=== PATIENT | male | born 1945 | race Caucasian/White ===

== ENCOUNTER → 2017-12-09 | Outpatient (CLI) | payer MEDICARE, OTHER ==
[2017-12-09 10:24] LABS: HEMATOCRIT 41.5 % (42.0-52.0); HEMOGLOBIN 13.7 g/dl (13.5-17.5); MEAN CORPUSCULAR HEMOGLOBIN 30.5 pg (27.0-33.0); MEAN CORPUSCULAR VOLUME 92.4 fl (80.0-96.0); PLATELET COUNT, AUTOMATED 211 10^3/uL (150-450); RED BLOOD COUNT 4.49 10^6/uL (4.30-6.10); RED CELL DISTRIBUTION WIDTH 12.4 % (11.5-14.5); WHITE BLOOD COUNT 7.2 10^3/uL (4.0-10.0)
[2017-12-09 10:29] LABS: APPEARANCE, URINE CLEAR (CLEAR); BACTERIA, URINE AUTO NEGATIVE (NEGATIVE); BILIRUBIN, URINE AUTO NEGATIVE (NEGATIVE); BLOOD, URINE BLOOD NEGATIVE (NEGATIVE); COLOR, URINE YELLOW (YELLOW); GLUCOSE, URINE (UA) AUTO NEGATIVE (NEGATIVE); KETONE, URINE AUTO NEGATIVE (NEGATIVE); LEUKOCYTE ESTERASE, URINE AUTO 2+ (NEGATIVE); MUCUS, URINE SMALL (NEGATIVE); NITRITE, URINE AUTO NEGATIVE (NEGATIVE); PROTEIN, URINE AUTO NEGATIVE (NEGATIVE); RBC, URINE AUTO 1 /HPF (0-3); SPECIFIC GRAVITY URINE AUTO 1.011 (1.002-1.035); SQUAMOUS EPITHELIAL CELL UR AU 1 /HPF (0-6); UROBILINOGEN, URINE AUTO 0.2 mg/dL (0.0-2.0); WBC, URINE AUTO 5 /HPF (0-3)
[2017-12-09 10:51] LABS: ESTIMATED AVERAGE GLUCOSE 117 MG/DL (60-110); HEMOGLOBIN A1c 5.7 %
[2017-12-09 11:22] LABS: ALBUMIN 3.5 GM/DL (3.2-5.2); ALKALINE PHOSPHATASE 72 U/L (45-117); ALT/SGPT 25 U/L (12-78); ANION GAP 6 MEQ/L (8-16); AST/SGOT 15 U/L (7-37); BILIRUBIN,TOTAL 0.6 MG/DL (0.2-1.0); BLOOD UREA NITROGEN 17 MG/DL (7-18); CALCIUM LEVEL 8.3 MG/DL (8.8-10.2); CARBON DIOXIDE LEVEL 29 MEQ/L (21-32); CHLORIDE LEVEL 107 MEQ/L (98-107); CHOLESTEROL LEVEL 161 MG/DL (<200); GLOMERULAR FILTRATION RATE > 60.0 (>42); GLUCOSE, FASTING 100 MG/DL (70-100); HDL CHOLESTEROL 46 MG/DL (>40); LDL CHOLESTEROL 95.2 MG/DL (<100); NON-HDL-C 115 MG/DL; POTASSIUM SERUM 4.3 MEQ/L (3.5-5.1); PROSTATIC SPECIFIC AG MONITOR 0.94 NG/ML (< 4.0); SODIUM LEVEL 142 MEQ/L (136-145); THYROID STIMULATING HORMONE 0.935 uIU/ML (0.358-3.740); TRIGLYCERIDES LEVEL 99 MG/DL (<150)
[2017-12-11 10:07] LABS: TOTAL 25(OH) VITAMIN D 74.6 NG/ML (30.0-100.0)
== END ==
LOC: M LAB 09:43
DX: R53.83 Other fatigue (principal); I10 Essential (primary) hypertension; Z79.899 Other long term (current) drug therapy
CPT/HCPCS: 84443

== ENCOUNTER → 2017-12-12 | Outpatient (CLI) | payer MEDICARE, OTHER ==
[~2017-12-12] MED LIST: GASTROGRAFIN SOLUTION 30ML (Q9963) As Ordered; ISOVUE-370 76% 100ML VIAL (Q9967) As Ordered
== END ==
LOC: M RAD 12:38
DX: R19.02 Left upper quadrant abdominal swelling, mass and lump (principal); N28.1 Cyst of kidney, acquired; K57.30 Diverticulosis of large intestine without perforation or abscess without bleeding; K40.20 Bilateral inguinal hernia, without obstruction or gangrene, not specified as recurrent
CPT/HCPCS: Q9963

== ENCOUNTER → 2018-09-07 | Outpatient (CLI) | payer MEDICARE, OTHER ==
[~2018-09-07] MED LIST changes: +ASPI81TA85 PO; +DOXA1TAB40 PO; -GASTROGRAFIN SOLUTION 30ML (Q9963) As Ordered; +IBUP80TA PO; -ISOVUE-370 76% 100ML VIAL (Q9967) As Ordered; +METO50TA7 PO; +MULTCAP11 PO; +TRIA37.53 PO; +norco PO
--- NOTE | 2018-09-07 09:56 | REP ---
MAXILLOFACIAL CT WITHOUT CONTRAST: HISTORY: Nasal polyps. COMPARISON: 11/06/2015. Mild mucosal thickening is present in the ethmoid sinuses. Minimal mucosal thickening is present in the maxillary and right sphenoid sinuses. The remaining sinuses are clear. Mucosal thickening involves the ostiomeatal units. The middle and inferior nasal turbinates are partially paradoxical. There is arsen bullosa of the middle nasal turbinates. There is minimal deviation of the nasal septum to the left. The cribriform plate, medial willard of the orbits, and optic canals are intact. The carotid canals form a segment of the posterolateral willard of the sphenoid sinus. Soft tissue densities are present in the nasal passage consistent with polyps. IMPRESSION: 1. Sinus mucosal thickening as described above. 2. There are soft tissue densities in the nasal passage consistent with polyps. Electronically Signed by Zuhair Montoya MD 09/07/2018 09:59 A
== END ==
LOC: M RAD 08:58
PROVIDERS: ATTEND Otolaryngology
DX: J33.0 Polyp of nasal cavity (principal)

== ENCOUNTER 2019-12-07 00:49 | Emergency (ER) | payer MEDICARE, OTHER ==
[~2019-12-07] VITALS: Ht 175.3 cm; Wt 92.2 kg
[~2019-12-07 00:49] MED LIST changes: -ASPI81TA85 PO; +ASPI81TA86 PO
[2019-12-07] MEDS ORDERED: FINA5TAB2 PO (00:56)
[2019-12-07] MEDS ORDERED: CETI10CH PO (01:03)
[2019-12-07] MEDS ORDERED: TETANUS/DIPHTHERIA TOX ADSORB ADULT 0.5ML SYR/VIAL (90714) IM ONE (02:00)
--- NOTE | 2019-12-07 03:29 | REPVR ---
PROCEDURE INFORMATION: Exam: XR Pelvis Exam date and time: 12/07/2019 2:47 AM Age: 74 years old Clinical indication: Injury or trauma; Fall; Initial encounter; Sprain or strain; Does not apply; Pelvic region; Additional info: Traum TECHNIQUE: Imaging protocol: XR pelvis. Views: 1 or 2 view. COMPARISON: CA CT ABD PELVIS W/O FOL BY MANOJ 2017-12-12 14:22 FINDINGS: Bones/joints: Moderate severe degenerative joint disease. Soft tissues: Unremarkable. Vasculature: Question left sacral alar insufficiency fracture versus overlying vascular calcifications and structures. IMPRESSION: Question left sacral alar insufficiency fracture versus overlying vascular calcifications and structures. Electronically signed by: Rangel Barrett On 12/07/2019 03:29:31 AM
--- NOTE | 2019-12-07 03:29 | REPVR ---
PROCEDURE INFORMATION: Exam: XR Left Shoulder Exam date and time: 12/07/2019 2:47 AM Age: 74 years old Clinical indication: Injury or trauma; Injury history: Fall; Initial encounter; Sprain or strain; Shoulder; Left; Additional info: Traum TECHNIQUE: Imaging protocol: XR Left shoulder. Views: 2 or more views. COMPARISON: No relevant prior studies available. 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 Soft tissues: Normal. IMPRESSION: No acute findings. Electronically signed by: Rangel Barrett On 12/07/2019 03:29:47 AM
[2019-12-07 03:33] VITALS: BP 158/75
== END 2019-12-07 03:34 | disposition home or self-care (01) ==
LOC: M ED 00:49
DX: T14.8XXA Other injury of unspecified body region, initial encounter (principal); W01.0XXA Fall on same level from slipping, tripping and stumbling without subsequent striking against object, initial encounter; Y92.099 Unspecified place in other non-institutional residence as the place of occurrence of the external cause; Y93.9 Activity, unspecified; Y99.9 Unspecified external cause status; I10 Essential (primary) hypertension; Z79.82 Long term (current) use of aspirin; Z79.899 Other long term (current) drug therapy

== ENCOUNTER → 2020-03-05 | Outpatient (CLI) | payer MEDICARE, OTHER ==
[~2020-03-05] MED LIST changes: +CETI10CH PO; +FINA5TAB2 PO
[2020-03-05 10:31] LABS: HEMATOCRIT 38.6 % (42.0-52.0); HEMOGLOBIN 12.6 g/dl (13.5-17.5); MEAN CORPUSCULAR HEMOGLOBIN 29.5 pg (27.0-33.0); MEAN CORPUSCULAR HGB CONC 32.6 g/dl (32.0-36.5); MEAN CORPUSCULAR VOLUME 90.4 fl (80.0-96.0); PLATELET COUNT, AUTOMATED 194 10^3/uL (150-450); RED BLOOD COUNT 4.27 10^6/uL (4.30-6.10); WHITE BLOOD COUNT 6.5 10^3/uL (4.0-10.0)
[2020-03-05 10:40] LABS: INR 1.05; PROTHROMBIN TIME 13.9 SECONDS (12.5-14.3)
[2020-03-05 11:15] LABS: ALBUMIN 3.7 GM/DL (3.2-5.2); ALT/SGPT 19 U/L (12-78); BILIRUBIN,TOTAL 0.5 MG/DL (0.2-1.0); BLOOD UREA NITROGEN 17 MG/DL (7-18); CALCIUM LEVEL 8.8 MG/DL (8.8-10.2); CARBON DIOXIDE LEVEL 29 MEQ/L (21-32); CHLORIDE LEVEL 100 MEQ/L (98-107); CHOLESTEROL LEVEL 156 MG/DL (<200); CHOLESTEROL RISK RATIO 2.689 (<5); GLOMERULAR FILTRATION RATE > 60.0 (>42); GLUCOSE, FASTING 95 MG/DL (70-100); HDL CHOLESTEROL 58 MG/DL (>40); LDL CHOLESTEROL 91 MG/DL (<100); NON-HDL-C 98 MG/DL; POTASSIUM SERUM 3.9 MEQ/L (3.5-5.1); PROSTATIC SPECIFIC AG MONITOR 0.21 NG/ML (< 4.00); SODIUM LEVEL 133 MEQ/L (136-145); TOTAL PROTEIN 6.7 GM/DL (6.4-8.2); TRIGLYCERIDES LEVEL 35 MG/DL (<150)
[2020-03-05 12:25] LABS: HEMOGLOBIN A1c 5.6 %
--- NOTE | 2020-03-05 14:14 | REP ---
INDICATION: HTN,FATIGUE/PREOP COMPARISON: 12/12/2017. TECHNIQUE: PA/Lateral FINDINGS: Lungs: Clear, no infiltrate. Heart: Normal in size. Mediastinum: There is calcification of the thoracic aorta. The mediastinal silhouette is unchanged. Pleural angles: Unremarkable.. Bones and soft tissues: There are degenerative changes of the spine without compression deformity. IMPRESSION: No acute pulmonary disease. <Electronically signed by David Pugh > 03/05/20 [id number]
--- NOTE | 2020-03-07 14:12 | ECGEPIP ---
[facility] Test Date: 2020-03-05 Pat Name: GERMAN VAUGHN Department: Room: - Gender: Male Indirect Sales Representative: PRAKASH : 1945 Requested By: Jorge Adkins Order Number: [id number] Reading MD: Reji Quintanilla Measurements Intervals [place] Rate: 53 P: 71 [place]: 214 QRS: -28 QRSD: 109 T: 29 QT: 438 QTc: 413 Interpretive Statements SINUS BRADYCARDIA WITH FIRST DEGREE AV BLOCK MARKED LEFT AXIS DEVIATION Compared to prior tracings in the system, no remarkable changes Electronically Signed on 03-07-2020 14:11:28 EST by Reji Quintanilla
== END ==
LOC: M LAB 09:31
PROVIDERS: ATTEND Family Medicine
DX: Z01.818 Encounter for other preprocedural examination (principal); I10 Essential (primary) hypertension; R53.83 Other fatigue; Z79.899 Other long term (current) drug therapy; R97.20 Elevated prostate specific antigen [PSA]

== ENCOUNTER → 2020-03-21 | Outpatient (CLI) | payer MEDICARE, OTHER | LOC: M LABSMTC 09:54 | PROVIDERS: ATTEND Orthopaedic Surgery | DX: Z01.812 Encounter for preprocedural laboratory examination (principal); Z20.828 Contact with and (suspected) exposure to other viral communicable diseases ==

== ENCOUNTER → 2020-07-08 | Outpatient (CLI) | payer MEDICARE, OTHER ==
--- NOTE | 2020-07-08 12:23 | REPVR ---
PROCEDURE INFORMATION: Exam: MR Lumbar Spine Without Contrast. Exam date and time: 07/08/2020 10:56 AM Age: 74 years old Clinical indication: Low back pain; Additional info: Ddd lumbar hnp vs stenosis TECHNIQUE: Imaging protocol: Multiplanar magnetic resonance images of the lumbar spine without contrast. COMPARISON: CR Spine. Lumbosacral, complete 08/14/2015 9:59 AM FINDINGS: Spinal cord: Normal signal. No cord compression. L1-L2: There is mild retrolisthesis at this level. There is degenerative disc disease including disc space narrowing and dessication. There is a moderate disc bulge with a superimposed broad-based central disc herniation. Disc bulging extends into both neural foramen causing severe bilateral neural foraminal narrowing. There is facet arthropathy and ligamentum flavum hypertrophy. There is moderate spinal canal stenosis. L2-L3: There is disc desiccation. There is mild disc bulging. Disc bulging extends into both neural foramen causing mild bilateral neural foraminal narrowing. There is facet arthropathy and ligamentum flavum hypertrophy. There is mild spinal canal stenosis. L3-L4: There is disc desiccation. There is moderate disc bulging. Disc bulging extends into both neural foramen causing moderate/severe bilateral neural foraminal narrowing. There is facet arthropathy and ligamentum flavum hypertrophy. There is mild/moderate spinal canal stenosis. L4-L5: There is grade 1 anterior spondylolisthesis at this level. There is disc desiccation. There is a moderate disc bulge with a small superimposed central disc herniation. Disc bulging extends into both neural foramen causing moderate/severe bilateral neural foraminal narrowing. There is facet arthropathy and ligamentum flavum hypertrophy. There is moderate/severe spinal canal stenosis. L5-S1: There is grade 1 anterior spondylolisthesis at this level. Bilateral spondylolysis is suspected but difficult to confirm. There is disc space narrowing and desiccation. There are moderate degenerative end plate changes at this level. There is moderate disc bulging. There are anterior and posterior disc herniations.There is a superimposed left foraminal disc herniation. There is severe left-sided neuroforaminal narrowing. There is moderate right-sided neuroforaminal narrowing. There is facet arthropathy and ligamentum flavum hypertrophy. There is mild spinal canal stenosis. Soft tissues: Unremarkable. IMPRESSION: Advanced multilevel degenerative changes causing variable degrees of spinal canal and neuroforaminal narrowing as described above. Moderate/severe spinal canal stenosis at L4/5. Severe left-sided neural foraminal narrowing at L5/S1. Multilevel disc herniations. Please see details above. Electronically signed by: Sergio Rollins On 07/08/2020 12:23:50 PM
== END ==
LOC: M PLARAD 09:52
PROVIDERS: ATTEND Orthopaedic Surgery
DX: M51.36 Other intervertebral disc degeneration, lumbar region (principal); M51.26 Other intervertebral disc displacement, lumbar region; M51.37 Other intervertebral disc degeneration, lumbosacral region; M51.27 Other intervertebral disc displacement, lumbosacral region

== ENCOUNTER → 2020-07-28 | Outpatient (CLI) | payer MEDICARE, OTHER ==
[2020-07-28 10:13] LABS: INR 1.09; PROTHROMBIN TIME 14.4 SECONDS (12.5-14.3)
[2020-07-28 10:14] LABS: PARTIAL THROMBOPLASTIN TIME 27.2 SECONDS (24.2-38.5)
[2020-07-28 10:20] LABS: COLLAGEN EPINEPHRINE 122 SECONDS (74-162)
== END ==
LOC: M LAB 09:37
PROVIDERS: ATTEND Physician Assistant
DX: M51.37 Other intervertebral disc degeneration, lumbosacral region (principal)

== ENCOUNTER → 2020-08-04 | Outpatient (CLI) | payer MEDICARE, OTHER ==
--- NOTE | 2020-08-04 15:50 | REP ---
INDICATION: SPINAL STENOSIS. COMPARISON: MR cervical spine 01/23/2019 TECHNIQUE: Sagittal T1, T2, STIR, axial T1 and T2 weighted MR images of the cervical spine obtained. FINDINGS: On the sagittal T2 weighted images, there is severe multilevel degenerative disc disease. There is slight anterolisthesis of C3 over C4 and C4 over C5. There is anterior osteophytic spurring. On the sagittal T2 weighted images, disc-osteophyte complex and/or thickening of the posterior longitudinal ligament results in canal stenosis at multiple cervical levels. At the craniovertebral junction there is a hypointense pannus formation posterior to C2 that narrows the foramen magnum but without evidence of cord impingement. Craniocervical junction is otherwise unremarkable. On the review of axial images, At C2-3 disc-osteophyte complex with moderate canal stenosis and [id number]-ji-[id number] bilateral foraminal narrowing. At C3-4 disc-osteophyte complex with at least moderate canal stenosis, and moderate bilateral foraminal narrowing. At C4-5 disc-osteophyte complex with qgovhhup-[id number] canal stenosis and afat-hb-[id number] bilateral foraminal narrowing. At C5-6 disc-osteophyte complex with severe canal stenosis with cord impingement and cord compression. There is severe bilateral foraminal narrowing. At C6-7 disc-osteophyte complex with moderate canal narrowing and eizt-ro-koviedit bilateral foraminal narrowing At C7-T1 no significant canal or foraminal narrowing. When compared to the prior study of 01/23/2019, no gross changes. IMPRESSION: 1. Severe multilevel degenerative disc disease with slight anterolisthesis of C3 over C4 and C4 over C5. 2. Multilevel canal stenosis, is most notable at C5-6 level with severe canal stenosis with cord impingement and cord compression but no definite abnormal cord signal. 3. Multilevel foraminal narrowing, appears most significant at C5-6 with severe bilateral foraminal narrowing. 4. When compared to the prior study of 01/23/2019, no gross changes. <Electronically signed by Jabier Talamantes > 08/04/20 [id number]
== END ==
LOC: M PLARAD 14:07
PROVIDERS: ATTEND Physician Assistant
DX: M48.02 Spinal stenosis, cervical region (principal); M50.31 Other cervical disc degeneration, high cervical region; M50.321 Other cervical disc degeneration at C4-C5 level; M50.322 Other cervical disc degeneration at C5-C6 level

== ENCOUNTER → 2020-08-25 | Outpatient (REF) | payer MEDICARE, OTHER | LOC: M LAB REF 16:13 | PROVIDERS: ATTEND Physician Assistant | DX: D23.39 Other benign neoplasm of skin of other parts of face (principal) | CPT/HCPCS: 11102; 88305; G0463 ==

== ENCOUNTER → 2020-09-23 | Outpatient (CLI) | payer MEDICARE, OTHER ==
[2020-09-23 14:17] LABS: PLATELET COUNT, AUTOMATED 192 10^3/uL (150-450)
== END ==
LOC: M LAB 13:40 → M RAD 13:40
PROVIDERS: ATTEND Physician Assistant
DX: Z01.818 Encounter for other preprocedural examination (principal)

== ENCOUNTER → 2020-10-29 | Outpatient (CLI) | payer MEDICARE, OTHER ==
[2020-10-29 14:06] LABS: HEMATOCRIT 38.3 % (42.0-52.0); HEMOGLOBIN 13.1 g/dl (13.5-17.5); MEAN CORPUSCULAR HEMOGLOBIN 31.3 pg (27.0-33.0); MEAN CORPUSCULAR HGB CONC 34.2 g/dl (32.0-36.5); MEAN CORPUSCULAR VOLUME 91.6 fl (80.0-96.0); PLATELET COUNT, AUTOMATED 201 10^3/uL (150-450); RED BLOOD COUNT 4.18 10^6/uL (4.30-6.10); WHITE BLOOD COUNT 6.1 10^3/uL (4.0-10.0)
[2020-10-29 14:17] LABS: INR 1.06
[2020-10-29 14:21] LABS: HEMOGLOBIN A1c 5.7 %
[2020-10-29 14:37] LABS: ALBUMIN 3.7 GM/DL (3.2-5.2); ALT/SGPT 21 U/L (12-78); BILIRUBIN,TOTAL 0.6 MG/DL (0.2-1.0); BLOOD UREA NITROGEN 15 MG/DL (7-18); CALCIUM LEVEL 8.6 MG/DL (8.8-10.2); CARBON DIOXIDE LEVEL 29 MEQ/L (21-32); CHLORIDE LEVEL 104 MEQ/L (98-107); CHOLESTEROL LEVEL 152 MG/DL (<200); CHOLESTEROL RISK RATIO 2.235 (<5); CREATININE FOR GFR 0.94 MG/DL (0.70-1.30); GLOMERULAR FILTRATION RATE > 60.0 (>42); GLUCOSE, FASTING 107 MG/DL (70-100); HDL CHOLESTEROL 68 MG/DL (>40); LDL CHOLESTEROL 76 MG/DL (<100); NON-HDL-C 84 MG/DL; POTASSIUM SERUM 4.4 MEQ/L (3.5-5.1); PROSTATIC SPECIFIC AG MONITOR 0.22 NG/ML (< 4.00); SODIUM LEVEL 137 MEQ/L (136-145); THYROID STIMULATING HORMONE 0.763 uIU/ML (0.358-3.740); TOTAL PROTEIN 6.9 GM/DL (6.4-8.2); TRIGLYCERIDES LEVEL 42 MG/DL (<150)
--- NOTE | 2020-10-29 15:13 | REP ---
INDICATION: HTN- LABS AND EKG FIRST. COMPARISON: Comparison study chest x-ray March 05, 2020. TECHNIQUE: Two views.. FINDINGS: The lungs are well inflated and free of infiltrate. The pleural angles are sharp. The heart size is normal. Pulmonary vasculature is not increased. No significant bony abnormality is seen. The lungs are somewhat hyperinflated unchanged. There are degenerative changes in the thoracic spine and aorta as well as in the shoulders. IMPRESSION: No active disease.. <Electronically signed by Sushil Alejandro > 10/29/20 [id number]
--- NOTE | 2020-10-30 22:36 | ECGEPIP ---
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
== END ==
LOC: M LAB 13:18
PROVIDERS: ATTEND Family Medicine
DX: Z01.818 Encounter for other preprocedural examination (principal); R00.1 Bradycardia, unspecified; I10 Essential (primary) hypertension; Z79.899 Other long term (current) drug therapy

== ENCOUNTER → 2021-09-01 | Outpatient (CLI) | payer MEDICARE, OTHER ==
[2021-09-01 13:17] LABS: PLATELET COUNT, AUTOMATED 181 10^3/uL (150-450)
[2021-09-01 13:38] LABS: INR 1.1; PROTHROMBIN TIME 14.6 SECONDS (12.7-14.5)
[2021-09-01 13:39] LABS: PARTIAL THROMBOPLASTIN TIME 29.2 SECONDS (25.9-37.0)
== END ==
LOC: M LAB 12:40
PROVIDERS: ATTEND Physical Medicine & Rehabilitation
DX: M48.07 Spinal stenosis, lumbosacral region (principal)

== ENCOUNTER → 2021-09-20 | Outpatient (CLI) | payer MEDICARE, OTHER ==
[~2021-09-20] MED LIST changes: -TRIA37.53 PO; +TRIA37.577 PO
[2021-09-20 14:12] LABS: HEMATOCRIT 33.5 % (42.0-52.0); MEAN CORPUSCULAR HEMOGLOBIN 29.8 pg (27.0-33.0); MEAN CORPUSCULAR HGB CONC 32.8 g/dl (32.0-36.5); MEAN CORPUSCULAR VOLUME 90.8 fl (80.0-96.0); PLATELET COUNT, AUTOMATED 172 10^3/uL (150-450); RED BLOOD COUNT 3.69 10^6/uL (4.30-6.10); WHITE BLOOD COUNT 9.4 10^3/uL (4.0-10.0)
[2021-09-20 14:39] LABS: HEMOGLOBIN A1c 5.7 %
[2021-09-20 15:05] LABS: ALBUMIN 3.7 GM/DL (3.2-5.2); ALT/SGPT 17 U/L (12-78); BILIRUBIN,TOTAL 0.5 MG/DL (0.2-1.0); BLOOD UREA NITROGEN 23 MG/DL (7-18); CARBON DIOXIDE LEVEL 29 MEQ/L (21-32); CHLORIDE LEVEL 102 MEQ/L (98-107); CREATININE FOR GFR 0.93 MG/DL (0.70-1.30); GLOMERULAR FILTRATION RATE > 60.0 (>42); GLUCOSE, FASTING 109 MG/DL (70-100); POTASSIUM SERUM 4.5 MEQ/L (3.5-5.1); SODIUM LEVEL 136 MEQ/L (136-145); THYROID STIMULATING HORMONE 0.632 uIU/ML (0.358-3.740); TOTAL 25(OH) VITAMIN D 94.9 NG/ML (30.0-100.0); TOTAL PROTEIN 6.9 GM/DL (6.4-8.2)
== END ==
LOC: M RAD 12:57
PROVIDERS: ATTEND Family Medicine
DX: D64.9 Anemia, unspecified (principal); R53.83 Other fatigue; E03.9 Hypothyroidism, unspecified; I44.0 Atrioventricular block, first degree
CPT/HCPCS: 36415; 71046; 80053; 82306; 83036; 84443; 85027; 93005; G0103

== ENCOUNTER 2022-01-21 13:42 | Inpatient (IN) | payer MEDICARE, OTHER ==
[~2022-01-21] VITALS: Ht 172.7 cm; Wt 86.3 kg
[2022-01-21] MEDS ORDERED: DOXA1TAB42 PO (13:52)
[2022-01-21] MEDS ORDERED: METO1TAB32 PO (13:52)
[2022-01-21] MEDS ORDERED: MYCO15CR (13:52)
[2022-01-21] MEDS ORDERED: HYDR2.5C (13:52)
[2022-01-21 15:12] LABS: BASO % 0.2 % (0.0-1.0); HEMATOCRIT 23.2 % (42.0-52.0); HEMOGLOBIN 7.4 g/dl (13.5-17.5); LYMPH # 0.7 10^3/uL (1.5-5.0); LYMPH % 8.2 % (24.0-44.0); MEAN CORPUSCULAR HEMOGLOBIN 25.4 pg (27.0-33.0); MEAN CORPUSCULAR HGB CONC 31.9 g/dl (32.0-36.5); MEAN CORPUSCULAR VOLUME 79.7 fl (80.0-96.0); MONO # 0.5 10^3/uL (0.0-0.8); NEUTROPHILS # 7.1 10^3/uL (1.5-8.5); NEUTROPHILS % 85.2 % (36.0-66.0); PLATELET COUNT, AUTOMATED 213 10^3/uL (150-450); RED BLOOD COUNT 2.91 10^6/uL (4.30-6.10); WHITE BLOOD COUNT 8.3 10^3/uL (4.0-10.0)
[2022-01-21 15:41] LABS: RSV AMPLIFICATION NEGATIVE (NEGATIVE)
[2022-01-21 15:54] LABS: ALBUMIN 3.4 GM/DL (3.2-5.2); ALT/SGPT 18 U/L (12-78); BILIRUBIN,DIRECT 0.2 MG/DL (0.0-0.2); BILIRUBIN,TOTAL 0.6 MG/DL (0.2-1.0); BLOOD UREA NITROGEN 27 MG/DL (7-18); CALCIUM LEVEL 8.4 MG/DL (8.8-10.2); CARBON DIOXIDE LEVEL 26 MEQ/L (21-32); CHLORIDE LEVEL 106 MEQ/L (98-107); CREATININE FOR GFR 0.99 MG/DL (0.70-1.30); FERRITIN 6 NG/ML (26-388); GLOMERULAR FILTRATION RATE > 60.0 (>42); GLUCOSE, FASTING 129 MG/DL (70-100); IRON (FE) 37 UG/DL (65-175); PERCENT SATURATION 9.9 % (19.7-50.0); SODIUM LEVEL 137 MEQ/L (136-145); TOTAL IRON BINDING CAPACITY 372 UG/DL (250-450); TOTAL PROTEIN 6.4 GM/DL (6.4-8.2)
[2022-01-21 16:24] LABS: VITAMIN B12 LEVEL > 2000 PG/ML (247-911)
[2022-01-21] MEDS ORDERED: NS 1,000 ML IV SCH (17:00)
[2022-01-21] MEDS: GASTROGRAFIN SOLUTION 30ML PO SCH ×2 (17:03→17:30)
[2022-01-21 17:13] LABS: INR 1.12; PROTHROMBIN TIME 14.8 SECONDS (12.7-14.5)
[2022-01-21 17:14] LABS: PARTIAL THROMBOPLASTIN TIME 28.2 SECONDS (25.9-37.0)
[2022-01-21] MEDS ORDERED: ISOVUE-370 76% 100ML VIAL As Ordered ONE (18:09)
[2022-01-21] MEDS ORDERED: cbd (20:45)
[2022-01-21] MEDS ORDERED: BIO-FREEZE TOP (20:48)
[2022-01-21] MEDS ORDERED: CBD CREAM TOP (20:48)
[2022-01-21] MEDS ORDERED: HOME MED LIST COMPLETE! XX SCH (20:50)
[2022-01-21] MEDS: DOXAZOSIN MESYLATE 1 MG TAB PO SCH (21:00)
[2022-01-21 23:50] VITALS: BP 146/65
[2022-01-22] VITALS (15 sets, daily range): BP systolic 103–158; BP diastolic 52–70
[2022-01-22] MEDS ORDERED: ACETAMINOPHEN TAB 650MG DOSE (2X325MG) PO ONE (01:00)
[2022-01-22] MEDS: DOXAZOSIN MESYLATE 1 MG TAB PO SCH ×2 (02:10→20:01)
[2022-01-22 08:02] LABS: BASO % 0.1 % (0.0-1.0); EOS % 0.1 % (0.0-3.0); HEMATOCRIT 23.7 % (42.0-52.0); HEMOGLOBIN 7.5 g/dl (13.5-17.5); LYMPH # 0.7 10^3/uL (1.5-5.0); MEAN CORPUSCULAR HEMOGLOBIN 25.7 pg (27.0-33.0); MEAN CORPUSCULAR HGB CONC 31.6 g/dl (32.0-36.5); MEAN CORPUSCULAR VOLUME 81.2 fl (80.0-96.0); MONO % 6.2 % (2.0-8.0); NEUTROPHILS # 14.5 10^3/uL (1.5-8.5); NEUTROPHILS % 88.9 % (36.0-66.0); PLATELET COUNT, AUTOMATED 206 10^3/uL (150-450); RED BLOOD COUNT 2.92 10^6/uL (4.30-6.10); WHITE BLOOD COUNT 16.3 10^3/uL (4.0-10.0)
[2022-01-22] MEDS: FINASTERIDE 5MG TAB PO SCH (08:36)
[2022-01-22] MEDS: METOPROLOL SUCC *XL* 25MG TAB (TopROL *XL*) PO SCH (08:38)
[2022-01-22 08:48] LABS: ALBUMIN 3.1 GM/DL (3.2-5.2); ALT/SGPT 15 U/L (12-78); BILIRUBIN,TOTAL 1.7 MG/DL (0.2-1.0); BLOOD UREA NITROGEN 25 MG/DL (7-18); CARBON DIOXIDE LEVEL 22 MEQ/L (21-32); CHLORIDE LEVEL 106 MEQ/L (98-107); CREATININE FOR GFR 0.84 MG/DL (0.70-1.30); GLOMERULAR FILTRATION RATE > 60.0 (>42); GLUCOSE, FASTING 120 MG/DL (70-100); POTASSIUM SERUM 3.7 MEQ/L (3.5-5.1); SODIUM LEVEL 137 MEQ/L (136-145); TOTAL PROTEIN 5.9 GM/DL (6.4-8.2)
[2022-01-22] MEDS ORDERED: LIDOCAINE 5% (LIDODERM) PATCH TD SCH ×2 (09:00→21:00)
[2022-01-22] MEDS ORDERED: POLYVINYL ALCOHOL OPHTH SOLN 15 ML(LIQUITEARS) OU PRN (09:20)
[2022-01-22] MEDS ORDERED: MIRALAX *UNIT DOSE* 17GM PACKET PO PRN (14:00)
[2022-01-22] MEDS: FERROUS SULFATE 325MG TAB PO SCH ×2 (15:00→20:01)
[2022-01-22] MEDS: DOCUSATE SODIUM 100MG CAPSULE PO SCH ×2 (15:28→20:14)
[2022-01-22 15:38] LABS: HEMATOCRIT 25.9 % (42.0-52.0); HEMOGLOBIN 8.5 g/dl (13.5-17.5)
[2022-01-22] MEDS ORDERED: **NOTE PATIENT COMMENT** MISC XX SCH (21:00)
[2022-01-22] MEDS ORDERED: SENNA 8.6 MG TAB (SENOKOT) PO SCH (21:00)
[2022-01-22 22:20] LABS: BASO # 0.1 10^3/uL (0.0-0.2); BASO % 0.4 % (0.0-1.0); EOS # 0.1 10^3/uL (0.0-0.5); EOS % 0.4 % (0.0-3.0); HEMATOCRIT 25.6 % (42.0-52.0); HEMOGLOBIN 8.7 g/dl (13.5-17.5); LYMPH % 6.2 % (24.0-44.0); MEAN CORPUSCULAR HEMOGLOBIN 27.5 pg (27.0-33.0); MONO # 1.2 10^3/uL (0.0-0.8); MONO % 7.5 % (2.0-8.0); NEUTROPHILS % 84.8 % (36.0-66.0); PLATELET COUNT, AUTOMATED 182 10^3/uL (150-450); RED BLOOD COUNT 3.16 10^6/uL (4.30-6.10); WHITE BLOOD COUNT 15.3 10^3/uL (4.0-10.0)
[2022-01-23] VITALS: BP 126/59
[2022-01-23 04:00] VITALS: BP 124/64
[2022-01-23 04:40] LABS: BASO % 0.3 % (0.0-1.0); EOS # 0.1 10^3/uL (0.0-0.5); EOS % 0.9 % (0.0-3.0); HEMATOCRIT 25.7 % (42.0-52.0); HEMOGLOBIN 8.5 g/dl (13.5-17.5); LYMPH # 1.1 10^3/uL (1.5-5.0); LYMPH % 9.2 % (24.0-44.0); MEAN CORPUSCULAR HEMOGLOBIN 27.2 pg (27.0-33.0); MEAN CORPUSCULAR HGB CONC 33.1 g/dl (32.0-36.5); MEAN CORPUSCULAR VOLUME 82.4 fl (80.0-96.0); MONO # 1.1 10^3/uL (0.0-0.8); MONO % 8.7 % (2.0-8.0); NEUTROPHILS # 9.8 10^3/uL (1.5-8.5); NEUTROPHILS % 80.4 % (36.0-66.0); PLATELET COUNT, AUTOMATED 169 10^3/uL (150-450); RED BLOOD COUNT 3.12 10^6/uL (4.30-6.10); WHITE BLOOD COUNT 12.2 10^3/uL (4.0-10.0)
[2022-01-23 05:25] LABS: ALBUMIN 2.8 GM/DL (3.2-5.2); ALT/SGPT 16 U/L (12-78); BLOOD UREA NITROGEN 18 MG/DL (7-18); CALCIUM LEVEL 7.6 MG/DL (8.8-10.2); CARBON DIOXIDE LEVEL 24 MEQ/L (21-32); CHLORIDE LEVEL 108 MEQ/L (98-107); CREATININE FOR GFR 0.85 MG/DL (0.70-1.30); GLOMERULAR FILTRATION RATE > 60.0 (>42); GLUCOSE, FASTING 119 MG/DL (70-100); POTASSIUM SERUM 3.3 MEQ/L (3.5-5.1); SODIUM LEVEL 137 MEQ/L (136-145)
[2022-01-23] MEDS ORDERED: POTASSIUM CHLORIDE 10MEQ SR TABLET PO ONE (06:00)
[2022-01-23 08:00] VITALS: BP 135/66
[2022-01-23] MEDS ORDERED: SENN18TA PO (08:39)
[2022-01-23] MEDS ORDERED: MIRA1POW3 PO (08:39)
[2022-01-23] MEDS ORDERED: FERR1TAB8 PO (08:39)
[2022-01-23] MEDS ORDERED: COLA100C5 PO (08:39)
[2022-01-23] MEDS: FINASTERIDE 5MG TAB PO SCH (08:54)
[2022-01-23 08:55] VITALS: BP 135/66
[2022-01-23] MEDS: METOPROLOL SUCC *XL* 25MG TAB (TopROL *XL*) PO SCH (08:55)
[2022-01-23] MEDS: DOCUSATE SODIUM 100MG CAPSULE PO SCH (08:55)
[2022-01-23] MEDS: FERROUS SULFATE 325MG TAB PO SCH (08:56)
[2022-01-23] MEDS ORDERED: **NOTE PATIENT COMMENT** MISC XX SCH (09:00)
[2022-01-23 12:00] VITALS: BP 166/58
[2022-01-23] MEDS ORDERED: IRON SUCROSE 200 MG in NS 100 ML IV ONE (12:00)
== END 2022-01-23 13:25 | disposition home or self-care (01) | DRG 378 ==
LOC: M ED 13:42 → M ED INP 22:01 → ENRESERV 22:35 → M PCU 01-22 00:27
PROVIDERS: ADMIT Family Medicine; ATTEND Internal Medicine
PROC: 30233N1 Transfusion of Nonautologous Red Blood Cells into Peripheral Vein, Percutaneous Approach (ICD-10-PCS; principal; 2022-01-22)
DX: K62.5 Hemorrhage of anus and rectum (principal); D62 Acute posthemorrhagic anemia; I10 Essential (primary) hypertension; N40.0 Benign prostatic hyperplasia without lower urinary tract symptoms; K57.30 Diverticulosis of large intestine without perforation or abscess without bleeding; M19.90 Unspecified osteoarthritis, unspecified site; Z79.899 Other long term (current) drug therapy

== ENCOUNTER → 2022-01-28 | Outpatient (CLI) | payer MEDICARE, OTHER ==
[~2022-01-28] MED LIST changes: +BIO-FREEZE TOP; +CBD CREAM TOP; +COLA100C5 PO; +DOXA1TAB42 PO; +FERR1TAB8 PO; +HYDR2.5C; +METO1TAB32 PO; +MIRA1POW3 PO; +MYCO15CR; +SENN18TA PO; +cbd
[2022-01-28 13:38] LABS: HEMATOCRIT 30.2 % (42.0-52.0); HEMOGLOBIN 9.5 g/dl (13.5-17.5); MEAN CORPUSCULAR HEMOGLOBIN 27.1 pg (27.0-33.0); MEAN CORPUSCULAR HGB CONC 31.5 g/dl (32.0-36.5); PLATELET COUNT, AUTOMATED 287 10^3/uL (150-450); RED BLOOD COUNT 3.51 10^6/uL (4.30-6.10); WHITE BLOOD COUNT 7.1 10^3/uL (4.0-10.0)
[2022-01-28 14:57] LABS: ALBUMIN 3.3 GM/DL (3.2-5.2); ALT/SGPT 19 U/L (12-78); BILIRUBIN,TOTAL 0.5 MG/DL (0.2-1.0); BLOOD UREA NITROGEN 13 MG/DL (7-18); CALCIUM LEVEL 8.7 MG/DL (8.8-10.2); CARBON DIOXIDE LEVEL 29 MEQ/L (21-32); CHLORIDE LEVEL 105 MEQ/L (98-107); CREATININE FOR GFR 0.98 MG/DL (0.70-1.30); GLOMERULAR FILTRATION RATE > 60.0 (>42); GLUCOSE, FASTING 108 MG/DL (70-100); POTASSIUM SERUM 4.3 MEQ/L (3.5-5.1); PROSTATIC SPECIFIC AG MONITOR 0.82 NG/ML (< 4.00); SODIUM LEVEL 138 MEQ/L (136-145); THYROID STIMULATING HORMONE 0.746 uIU/ML (0.358-3.740); TOTAL PROTEIN 6.3 GM/DL (6.4-8.2)
[2022-01-28 15:22] LABS: TOTAL 25(OH) VITAMIN D 99.2 NG/ML (30.0-100.0)
[2022-01-28 15:23] LABS: TESTOSTERONE 414 NG/DL (241-827)
[2022-01-28 16:08] LABS: HEMOGLOBIN A1c 5.8 %
== END ==
LOC: M LAB 12:44
PROVIDERS: ATTEND Family Medicine
DX: D64.9 Anemia, unspecified (principal); R53.83 Other fatigue

== ENCOUNTER → 2022-02-16 | Outpatient (CLI) | payer MEDICARE, OTHER ==
[2022-02-16 13:07] LABS: HEMATOCRIT 32.3 % (42.0-52.0); HEMOGLOBIN 10.1 g/dl (13.5-17.5); MEAN CORPUSCULAR HEMOGLOBIN 27.4 pg (27.0-33.0); MEAN CORPUSCULAR HGB CONC 31.3 g/dl (32.0-36.5); MEAN CORPUSCULAR VOLUME 87.8 fl (80.0-96.0); PLATELET COUNT, AUTOMATED 257 10^3/uL (150-450); RED BLOOD COUNT 3.68 10^6/uL (4.30-6.10); WHITE BLOOD COUNT 7.8 10^3/uL (4.0-10.0)
[2022-02-16 14:06] LABS: ALBUMIN 3.2 GM/DL (3.2-5.2); ALT/SGPT 19 U/L (12-78); BILIRUBIN,TOTAL 0.3 MG/DL (0.2-1.0); BLOOD UREA NITROGEN 18 MG/DL (7-18); CALCIUM LEVEL 8.3 MG/DL (8.8-10.2); CARBON DIOXIDE LEVEL 27 MEQ/L (21-32); CHLORIDE LEVEL 105 MEQ/L (98-107); CREATININE FOR GFR 0.91 MG/DL (0.70-1.30); GLOMERULAR FILTRATION RATE > 60.0 (>42); GLUCOSE, FASTING 106 MG/DL (70-100); POTASSIUM SERUM 3.9 MEQ/L (3.5-5.1); PROSTATIC SPECIFIC AG MONITOR 0.68 NG/ML (< 4.00); SODIUM LEVEL 138 MEQ/L (136-145); TOTAL PROTEIN 6.5 GM/DL (6.4-8.2)
[2022-02-16 15:09] LABS: TESTOSTERONE 309 NG/DL (241-827)
[2022-02-16 15:25] LABS: HEMOGLOBIN A1c 5.6 %
== END ==
LOC: M LAB 12:02
PROVIDERS: ATTEND Family Medicine
DX: D64.9 Anemia, unspecified (principal); R53.83 Other fatigue; N40.0 Benign prostatic hyperplasia without lower urinary tract symptoms

== ENCOUNTER → 2022-03-29 | Outpatient (CLI) | payer MEDICARE, OTHER ==
[2022-03-29 12:45] LABS: HEMATOCRIT 38.5 % (42.0-52.0); HEMOGLOBIN 12.2 g/dl (13.5-17.5); MEAN CORPUSCULAR HEMOGLOBIN 28.1 pg (27.0-33.0); MEAN CORPUSCULAR HGB CONC 31.7 g/dl (32.0-36.5); MEAN CORPUSCULAR VOLUME 88.7 fl (80.0-96.0); PLATELET COUNT, AUTOMATED 235 10^3/uL (150-450); RED BLOOD COUNT 4.34 10^6/uL (4.30-6.10); WHITE BLOOD COUNT 6.6 10^3/uL (4.0-10.0)
[2022-03-29 13:16] LABS: THYROID STIMULATING HORMONE 0.762 uIU/ML (0.55-4.78)
[2022-03-29 13:35] LABS: ALBUMIN 3.7 G/DL (3.2-5.2); ALKALINE PHOSPHATASE 72 U/L (46-116); ALT/SGPT 17 U/L (7.0-40); AST/SGOT 20 U/L (<34); BILIRUBIN,TOTAL 0.7 MG/DL (0.3-1.2); BLOOD UREA NITROGEN 13 MG/DL (9-23); CALCIUM LEVEL 8.7 MG/DL (8.3-10.6); CARBON DIOXIDE LEVEL 29 MMOL/L (20-31); CHLORIDE LEVEL 103 MMOL/L (98-107); CREATININE FOR GFR 0.84 MG/DL (0.70-1.30); GLOMERULAR FILTRATION RATE > 60.0 (>42); GLUCOSE, FASTING 99 MG/DL (74-106); POTASSIUM SERUM 4.3 MMOL/L (3.5-5.1); SODIUM LEVEL 138 MMOL/L (136-145)
[2022-03-29 17:34] LABS: HEMOGLOBIN A1c 5.2 % (4.0-6.0)
== END ==
LOC: M LAB 11:43
PROVIDERS: ATTEND Family Medicine
DX: D64.9 Anemia, unspecified (principal); R53.83 Other fatigue; E03.9 Hypothyroidism, unspecified

== ENCOUNTER → 2022-04-04 | Outpatient (CLI) | payer MEDICARE, OTHER ==
[~2022-04-04] MED LIST changes: +ASTA4CAP PO; +CURAMED; +GALZ25CA PO; +LUTE15CA PO; +MAG100TA PO; +N-ACCAP PO; +OMEGCAP4 PO; +POTA99CA2 PO; +VITA100093 PO; +VITA500C24 PO; +VITMTA PO; +[UNRECOGNIZED DRUG - CODE] PO; +[UNRECOGNIZED DRUG - OTHER]; +[UNRECOGNIZED DRUG - OTHER] PO
== END ==
LOC: M LABSMTC 10:34
PROVIDERS: ATTEND Anesthesiology
DX: Z01.812 Encounter for preprocedural laboratory examination (principal); Z11.52 Encounter for screening for COVID-19

== ENCOUNTER → 2022-08-18 | Outpatient (CLI) | payer MEDICARE, OTHER ==
[2022-08-18 13:24] LABS: HEMATOCRIT 37.5 % (42.0-52.0); HEMOGLOBIN 12.1 g/dl (13.5-17.5); MEAN CORPUSCULAR HEMOGLOBIN 28.3 pg (27.0-33.0); MEAN CORPUSCULAR HGB CONC 32.3 g/dl (32.0-36.5); MEAN CORPUSCULAR VOLUME 87.8 fl (80.0-96.0); PLATELET COUNT, AUTOMATED 255 10^3/uL (150-450); RED BLOOD COUNT 4.27 10^6/uL (4.30-6.10); WHITE BLOOD COUNT 9.5 10^3/uL (4.0-10.0)
[2022-08-18 13:49] LABS: ALBUMIN 3.5 G/DL (3.2-5.2); ALKALINE PHOSPHATASE 106 U/L (46-116); ALT/SGPT 9 U/L (7.0-40); AST/SGOT 25 U/L (<34); BILIRUBIN,TOTAL 0.7 MG/DL (0.3-1.2); BLOOD UREA NITROGEN 14 MG/DL (9-23); CALCIUM LEVEL 8.8 MG/DL (8.3-10.6); CARBON DIOXIDE LEVEL 29 MMOL/L (20-31); CHLORIDE LEVEL 104 MMOL/L (98-107); CHOLESTEROL LEVEL 140 MG/DL (<200); CHOLESTEROL RISK RATIO 2.69 (<5); CREATININE FOR GFR 0.86 MG/DL (0.70-1.30); GLOMERULAR FILTRATION RATE > 60.0 (>42); GLUCOSE, FASTING 100 MG/DL (74-106); LDL CHOLESTEROL 77.4 MG/DL (<100); POTASSIUM SERUM 4.3 MMOL/L (3.5-5.1); SODIUM LEVEL 137 MMOL/L (136-145); TOTAL PROTEIN 6.8 G/DL (5.7-8.2); TRIGLYCERIDES LEVEL 53 MG/DL (<150)
[2022-08-18 13:50] LABS: THYROID STIMULATING HORMONE 0.938 uIU/ML (0.55-4.78)
[2022-08-18 13:51] LABS: TESTOSTERONE 407 NG/DL (241-827)
[2022-08-18 16:39] LABS: HEMOGLOBIN A1c 5.6 % (4.0-6.0)
== END ==
LOC: M LAB 12:24
PROVIDERS: ATTEND Family Medicine
DX: D64.9 Anemia, unspecified (principal); R53.83 Other fatigue; E03.9 Hypothyroidism, unspecified

== ENCOUNTER → 2022-09-21 | Outpatient (CLI) | payer MEDICARE, OTHER ==
[~2022-09-21] MED LIST changes: +ACET32TAB PO; +AZIT-12 PO; +BIOCOMPLETE PO; +CYAN500T14 PO; +DOCU100C16 PO; +IRON65TA2 PO; +MELA10CA6 PO; +NERVE PO; +OCUV1CAP4 PO; +OMEG10002 PO; +VITA-243 PO; +ZINC50TA17 PO; +[UNRECOGNIZED DRUG - OTHER] PO; +[UNRECOGNIZED DRUG - REMARK] PO; +boswellia PO; +curamed PO; +curcumin PO; +essential enzymes PO
[2022-09-21 14:24] LABS: HEMATOCRIT 36.6 % (42.0-52.0); HEMOGLOBIN 11.6 g/dl (13.5-17.5); MEAN CORPUSCULAR HGB CONC 31.7 g/dl (32.0-36.5); MEAN CORPUSCULAR VOLUME 88.4 fl (80.0-96.0); PLATELET COUNT, AUTOMATED 261 10^3/uL (150-450); RED BLOOD COUNT 4.14 10^6/uL (4.30-6.10); WHITE BLOOD COUNT 9.2 10^3/uL (4.0-10.0)
[2022-09-21 14:32] LABS: INR 1.04; PROTHROMBIN TIME 13.8 SECONDS (12.5-14.5)
[2022-09-21 14:34] LABS: HEMOGLOBIN A1c 5.6 % (4.0-6.0)
[2022-09-21 14:46] LABS: ALBUMIN 3.4 G/DL (3.2-5.2); ALKALINE PHOSPHATASE 105 U/L (46-116); ALT/SGPT 18 U/L (7.0-40); AST/SGOT 25 U/L (<34); BILIRUBIN,TOTAL 0.8 MG/DL (0.3-1.2); BLOOD UREA NITROGEN 14 MG/DL (9-23); CALCIUM LEVEL 8.7 MG/DL (8.3-10.6); CARBON DIOXIDE LEVEL 29 MMOL/L (20-31); CHLORIDE LEVEL 102 MMOL/L (98-107); CHOLESTEROL LEVEL 133 MG/DL (<200); CHOLESTEROL RISK RATIO 2.49 (<5); CREATININE FOR GFR 0.76 MG/DL (0.70-1.30); GLOMERULAR FILTRATION RATE > 60.0 (>42); GLUCOSE, FASTING 102 MG/DL (74-106); HDL CHOLESTEROL 53.4 MG/DL (>40); LDL CHOLESTEROL 67.6 MG/DL (<100); NON-HDL-C 79.6 MG/DL; POTASSIUM SERUM 4.6 MMOL/L (3.5-5.1); PROSTATIC SPECIFIC AG MONITOR 0.11 NG/ML (< 4.00); SODIUM LEVEL 135 MMOL/L (136-145); TOTAL PROTEIN 7.2 G/DL (5.7-8.2); TRIGLYCERIDES LEVEL 60 MG/DL (<150)
[2022-09-21 14:50] LABS: THYROID STIMULATING HORMONE 0.823 uIU/ML (0.55-4.78)
[2022-09-21 14:52] LABS: TOTAL 25(OH) VITAMIN D 108.6 NG/ML (20.0-100.0)
== END ==
LOC: M RAD 12:58
PROVIDERS: ATTEND Family Medicine
DX: Z01.818 Encounter for other preprocedural examination (principal); I10 Essential (primary) hypertension; J44.9 Chronic obstructive pulmonary disease, unspecified

== ENCOUNTER → 2022-11-15 | Day surgery (SDC) | payer MEDICARE, OTHER ==
[~2022-11-15] VITALS: Ht 175.3 cm; Wt 80.3 kg
[~2022-11-15] MED LIST changes: +ACET-839 PO; +CEPH500C PO; +CYCL-707 PO; +GLYCOPYRROLATE INJ 0.2 MG/ML 2 ML VIAL As Ordered ONE; +NS 1,000 ML IV ONE; +SENN-111 PO; -SENN18TA PO; +TRAM50TA2 PO; +propofoL 200 MG/20 ML VIAL As Ordered ONE
[2022-11-15 08:53] VITALS: BP 127/66; O2SAT 97
== END | disposition home or self-care (01) ==
LOC: M OPP 06:42
PROVIDERS: ATTEND Internal Medicine Gastroenterology
DX: C18.0 Malignant neoplasm of cecum (principal); K56.690 Other partial intestinal obstruction; K57.30 Diverticulosis of large intestine without perforation or abscess without bleeding; K64.8 Other hemorrhoids; K62.5 Hemorrhage of anus and rectum; Z79.899 Other long term (current) drug therapy

== ENCOUNTER → 2022-11-25 | Outpatient (CLI) | payer MEDICARE, OTHER ==
[~2022-11-25] MED LIST changes: -GLYCOPYRROLATE INJ 0.2 MG/ML 2 ML VIAL As Ordered ONE; -NS 1,000 ML IV ONE; -propofoL 200 MG/20 ML VIAL As Ordered ONE
[2022-11-25 11:23] LABS: HEMATOCRIT 31.7 % (42.0-52.0); MEAN CORPUSCULAR HEMOGLOBIN 26.7 pg (27.0-33.0); MEAN CORPUSCULAR HGB CONC 31.5 g/dl (32.0-36.5); MEAN CORPUSCULAR VOLUME 84.8 fl (80.0-96.0); PLATELET COUNT, AUTOMATED 320 10^3/uL (150-450); RED BLOOD COUNT 3.74 10^6/uL (4.30-6.10); WHITE BLOOD COUNT 10.5 10^3/uL (4.0-10.0)
[2022-11-25 11:35] LABS: HEMOGLOBIN A1c 6.3 % (4.0-6.0)
[2022-11-25 11:44] LABS: ALBUMIN 3.1 G/DL (3.2-5.2); ALKALINE PHOSPHATASE 131 U/L (46-116); ALT/SGPT 26 U/L (7.0-40); AST/SGOT 39 U/L (<34); BILIRUBIN,TOTAL 0.8 MG/DL (0.3-1.2); BLOOD UREA NITROGEN 12 MG/DL (9-23); CALCIUM LEVEL 8.5 MG/DL (8.3-10.6); CARBON DIOXIDE LEVEL 28 MMOL/L (20-31); CHLORIDE LEVEL 103 MMOL/L (98-107); CHOLESTEROL LEVEL 132 MG/DL (<200); CHOLESTEROL RISK RATIO 2.77 (<5); CREATININE FOR GFR 0.79 MG/DL (0.70-1.30); GLOMERULAR FILTRATION RATE > 60.0 (>42); GLUCOSE, FASTING 100 MG/DL (74-106); HDL CHOLESTEROL 47.6 MG/DL (>40); LDL CHOLESTEROL 73.4 MG/DL (<100); NON-HDL-C 84.4 MG/DL; POTASSIUM SERUM 4.4 MMOL/L (3.5-5.1); PROSTATIC SPECIFIC AG MONITOR 0.11 NG/ML (< 4.00); SODIUM LEVEL 137 MMOL/L (136-145); TOTAL PROTEIN 6.7 G/DL (5.7-8.2); TRIGLYCERIDES LEVEL 55 MG/DL (<150)
[2022-11-25 11:48] LABS: THYROID STIMULATING HORMONE 0.726 uIU/ML (0.55-4.78)
[2022-11-25 11:50] LABS: TOTAL 25(OH) VITAMIN D 93.1 NG/ML (20.0-100.0)
== END ==
LOC: M LAB 10:11
PROVIDERS: ATTEND Family Medicine
DX: I10 Essential (primary) hypertension (principal); D64.9 Anemia, unspecified; R53.83 Other fatigue; Z79.899 Other long term (current) drug therapy; C18.0 Malignant neoplasm of cecum; E03.9 Hypothyroidism, unspecified; R97.20 Elevated prostate specific antigen [PSA]

== ENCOUNTER → 2022-12-12 | Outpatient (CLI) | payer MEDICARE, OTHER ==
[2022-12-12 12:46] LABS: HEMATOCRIT 34.7 % (42.0-52.0); MEAN CORPUSCULAR HEMOGLOBIN 26.6 pg (27.0-33.0); MEAN CORPUSCULAR HGB CONC 31.7 g/dl (32.0-36.5); PLATELET COUNT, AUTOMATED 382 10^3/uL (150-450); RED BLOOD COUNT 4.13 10^6/uL (4.30-6.10); WHITE BLOOD COUNT 11.5 10^3/uL (4.0-10.0)
[2022-12-12 12:59] LABS: INR 1.17; PROTHROMBIN TIME 14.6 SECONDS (12.5-14.5)
[2022-12-12 13:07] LABS: HEMOGLOBIN A1c 5.5 % (4.0-6.0)
[2022-12-12 13:18] LABS: ALBUMIN 3.2 G/DL (3.2-5.2); ALKALINE PHOSPHATASE 145 U/L (46-116); ALT/SGPT 21 U/L (7.0-40); AST/SGOT 38 U/L (<34); BILIRUBIN,TOTAL 0.8 MG/DL (0.3-1.2); BLOOD UREA NITROGEN 14 MG/DL (9-23); CARBON DIOXIDE LEVEL 26 MMOL/L (20-31); CHLORIDE LEVEL 100 MMOL/L (98-107); CREATININE FOR GFR 0.79 MG/DL (0.70-1.30); GLOMERULAR FILTRATION RATE > 60.0 (>42); GLUCOSE, FASTING 120 MG/DL (74-106); POTASSIUM SERUM 4.8 MMOL/L (3.5-5.1); SODIUM LEVEL 134 MMOL/L (136-145); TOTAL PROTEIN 7.3 G/DL (5.7-8.2)
[2022-12-12 13:20] LABS: THYROID STIMULATING HORMONE 1.022 uIU/ML (0.55-4.78)
== END ==
LOC: M RAD 11:57
PROVIDERS: ATTEND Family Medicine
DX: I10 Essential (primary) hypertension (principal); Z86.73 Personal history of transient ischemic attack (TIA), and cerebral infarction without residual deficits; Z79.899 Other long term (current) drug therapy; R91.8 Other nonspecific abnormal finding of lung field

== ENCOUNTER 2022-12-14 11:07 | Emergency (ER) | payer MEDICARE, OTHER ==
[~2022-12-14] VITALS: Ht 180.3 cm; Wt 81.8 kg
[2022-12-14 11:40] LABS: VENOUS BASE EXCESS -0.1 (-2.0-2.0); VENOUS HCO3 25.4 MMOL/L (23.0-27.0); VENOUS O2 SATURATION 75.2 % (60.0-80.0); VENOUS PARTIAL PRESSURE CO2 44.8 mmHg (38.0-50.0); VENOUS PARTIAL PRESSURE O2 42.2 mmHg (30.0-50.0); VENOUS PH 7.372 UNITS (7.330-7.430); VENOUS TOTAL CO2 26.8 MMOL/L (24.0-28.0)
[2022-12-14 11:45] LABS: BASO # 0.1 10^3/uL (0.0-0.2); BASO % 0.7 % (0.0-1.0); EOS # 0.4 10^3/uL (0.0-0.5); EOS % 2.6 % (0.0-3.0); HEMATOCRIT 34.4 % (42.0-52.0); HEMOGLOBIN 10.9 g/dl (13.5-17.5); LYMPH # 1.3 10^3/uL (1.5-5.0); LYMPH % 9.6 % (24.0-44.0); MEAN CORPUSCULAR HEMOGLOBIN 26.8 pg (27.0-33.0); MEAN CORPUSCULAR HGB CONC 31.7 g/dl (32.0-36.5); MEAN CORPUSCULAR VOLUME 84.7 fl (80.0-96.0); MONO % 12.1 % (2.0-8.0); NEUTROPHILS # 9.8 10^3/uL (1.5-8.5); NEUTROPHILS % 74.2 % (36.0-66.0); PLATELET COUNT, AUTOMATED 372 10^3/uL (150-450); RED BLOOD COUNT 4.06 10^6/uL (4.30-6.10); WHITE BLOOD COUNT 13.3 10^3/uL (4.0-10.0)
[2022-12-14] MEDS ORDERED: dexAMETHasone 20MG/5ML VIAL IV ONE (12:00)
[2022-12-14 12:08] LABS: MONO # 1.6 10^3/uL (0.0-0.8)
[2022-12-14 12:11] LABS: OSMOLALITY SERUM 278 MOSM/KG (280-301)
[2022-12-14 12:17] LABS: THYROID STIMULATING HORMONE 0.799 uIU/ML (0.55-4.78)
[2022-12-14 12:21] LABS: ALBUMIN 2.6 G/DL (3.2-5.2); ALKALINE PHOSPHATASE 132 U/L (46-116); ALT/SGPT 17 U/L (7.0-40); AST/SGOT 31 U/L (<34); BILIRUBIN,DIRECT 0.3 MG/DL (<0.4); BILIRUBIN,TOTAL 0.8 MG/DL (0.3-1.2); BLOOD UREA NITROGEN 13 MG/DL (9-23); CALCIUM LEVEL 7.7 MG/DL (8.3-10.6); CARBON DIOXIDE LEVEL 25 MMOL/L (20-31); CHLORIDE LEVEL 104 MMOL/L (98-107); CREATININE FOR GFR 0.68 MG/DL (0.70-1.30); GLOMERULAR FILTRATION RATE > 60.0 (>42); GLUCOSE, FASTING 95 MG/DL (74-106); SODIUM LEVEL 137 MMOL/L (136-145)
[2022-12-14 15:07] VITALS: BP 148/71; TEMP 99.4; O2SAT 95
== END 2022-12-14 17:28 | disposition left against medical advice (07) ==
LOC: M ED 11:07 → EDBD 11:07 → M ED 15:48
DX: R90.0 Intracranial space-occupying lesion found on diagnostic imaging of central nervous system (principal); Z91.81 History of falling; I10 Essential (primary) hypertension; Z86.73 Personal history of transient ischemic attack (TIA), and cerebral infarction without residual deficits; N40.0 Benign prostatic hyperplasia without lower urinary tract symptoms; J30.89 Other allergic rhinitis; Z87.891 Personal history of nicotine dependence; Z79.899 Other long term (current) drug therapy
CPT/HCPCS: 70450; 71045; 80048; 80076; 81001; 82140; 82803; 83605; 83930; 84443; 85025; 87040; 87077; 87086; 87186; 87635; 93005; 93041; 94760; 96374; 99285; J1100

== ENCOUNTER → 2023-02-10 | Outpatient (CLI) | payer MEDICARE, OTHER ==
[~2023-02-10] MED LIST changes: +COMPTAB7 PO; +DEXA4TA; +FLUT50SP17; +MECL-136; +ONDA4TAB6; +PANT40TA29; +POLY17PO18 PO; +QUER500C PO; +ROPI1TAB73; +SENN-186 PO; +TRIA1CR80; +TUME1CAP PO
[2023-02-10 14:38] LABS: HEMATOCRIT 29.1 % (42.0-52.0); HEMOGLOBIN 9.5 g/dl (13.5-17.5); MEAN CORPUSCULAR HEMOGLOBIN 27.4 pg (27.0-33.0); MEAN CORPUSCULAR HGB CONC 32.6 g/dl (32.0-36.5); MEAN CORPUSCULAR VOLUME 83.9 fl (80.0-96.0); PLATELET COUNT, AUTOMATED 280 10^3/uL (150-450); RED BLOOD COUNT 3.47 10^6/uL (4.30-6.10); WHITE BLOOD COUNT 19.3 10^3/uL (4.0-10.0)
[2023-02-10 14:52] LABS: ALBUMIN 2.4 G/DL (3.2-5.2); ALKALINE PHOSPHATASE 157 U/L (46-116); ALT/SGPT 45 U/L (7.0-40); AST/SGOT 49 U/L (<34); BILIRUBIN,TOTAL 0.7 MG/DL (0.3-1.2); BLOOD UREA NITROGEN 29 MG/DL (9-23); CALCIUM LEVEL 8.2 MG/DL (8.3-10.6); CARBON DIOXIDE LEVEL 27 MMOL/L (20-31); CHLORIDE LEVEL 96 MMOL/L (98-107); CREATININE FOR GFR 0.74 MG/DL (0.70-1.30); GLOMERULAR FILTRATION RATE > 60.0 (>42); GLUCOSE, FASTING 107 MG/DL (74-106); POTASSIUM SERUM 4.1 MMOL/L (3.5-5.1); SODIUM LEVEL 132 MMOL/L (136-145); TOTAL PROTEIN 5.7 G/DL (5.7-8.2)
[2023-02-10 14:54] LABS: THYROID STIMULATING HORMONE 0.389 uIU/ML (0.55-4.78)
== END ==
LOC: M LAB 13:55
PROVIDERS: ATTEND Family Medicine
DX: D64.9 Anemia, unspecified (principal); R53.83 Other fatigue; E03.9 Hypothyroidism, unspecified

== ENCOUNTER 2023-02-22 04:29 | Inpatient (IN) | payer MEDICARE, OTHER ==
[2023-02-22] VITALS (13 sets, daily range): BP systolic 100–126; BP diastolic 40–68; TEMP 97.1–98.9; O2SAT 94–100
[~2023-02-22] VITALS: Ht 175.3 cm; Wt 78.7 kg
[~2023-02-22 04:29] MED LIST changes: -DEXA4TA; +DEXA4TA PO; -MECL-136; +MECL-136 PO
[2023-02-22] MEDS ORDERED: DIPH2.5T15 PO (05:22)
[2023-02-22] MEDS ORDERED: TIZA1TAB12 PO (05:27)
[2023-02-22] MEDS ORDERED: SODI1TAB12 PO (05:27)
[2023-02-22] MEDS ORDERED: GERI8.6T PO (05:27)
[2023-02-22] MEDS ORDERED: ROPI1TAB73 PO (05:27)
[2023-02-22] MEDS ORDERED: TRAZ-257 PO (05:27)
[2023-02-22] MEDS ORDERED: ONDANSETRON 4MG 2ML VIAL IV ONE (05:45)
[2023-02-22 05:49] LABS: BASO % 0.1 % (0.0-1.0); EOS % 0.1 % (0.0-3.0); HEMATOCRIT 23.1 % (42.0-52.0); HEMOGLOBIN 7.7 g/dl (13.5-17.5); LYMPH # 0.3 10^3/uL (1.5-5.0); LYMPH % 3.3 % (24.0-44.0); MEAN CORPUSCULAR HEMOGLOBIN 27.6 pg (27.0-33.0); MEAN CORPUSCULAR HGB CONC 33.3 g/dl (32.0-36.5); MEAN CORPUSCULAR VOLUME 82.8 fl (80.0-96.0); MONO # 0.5 10^3/uL (0.0-0.8); MONO % 4.8 % (2.0-8.0); NEUTROPHILS # 9.1 10^3/uL (1.5-8.5); NEUTROPHILS % 88.6 % (36.0-66.0); PLATELET COUNT, AUTOMATED 221 10^3/uL (150-450); RED BLOOD COUNT 2.79 10^6/uL (4.30-6.10); WHITE BLOOD COUNT 10.3 10^3/uL (4.0-10.0)
[2023-02-22] MEDS: MORPHINE 2 MG/ML 1ML VIAL IV PRN ×2 (06:04→12:08)
[2023-02-22 06:10] LABS: INR 1.31; PROTHROMBIN TIME 15.9 SECONDS (12.5-14.5)
[2023-02-22 06:11] LABS: PARTIAL THROMBOPLASTIN TIME 25.5 SECONDS (24.8-34.2)
[2023-02-22 06:14] LABS: CK-MB VALUE MASS 1.4 NG/ML (<3.6)
[2023-02-22 06:16] LABS: BLOOD UREA NITROGEN 22 MG/DL (9-23); CALCIUM LEVEL 6.7 MG/DL (8.3-10.6); CARBON DIOXIDE LEVEL 22 MMOL/L (20-31); CHLORIDE LEVEL 101 MMOL/L (98-107); GLOMERULAR FILTRATION RATE > 60.0 (>42); GLUCOSE, FASTING 99 MG/DL (74-106); POTASSIUM SERUM 4.7 MMOL/L (3.5-5.1); SODIUM LEVEL 131 MMOL/L (136-145)
[2023-02-22 06:19] LABS: CPK CREATINE PHOSPHOKINASE 63 U/L (46-171); MB/CK RELATIVE INDEX 2.22 (< OR =4)
[2023-02-22] MEDS ORDERED: ISOVUE-370 76% 100ML VIAL As Ordered ONE (06:42)
[2023-02-22 07:17] LABS: CK-MB VALUE MASS 1.4 NG/ML (<3.6)
[2023-02-22 07:18] LABS: MB/CK RELATIVE INDEX 2.37 (< OR =4)
[2023-02-22] MEDS ORDERED: PANTOPRAZOLE 40MG VIAL IV ONE (08:15)
[2023-02-22] MEDS ORDERED: MED REC IN PROGRESS XX SCH (08:40)
[2023-02-22] MEDS ORDERED: METOPROLOL TART 12.5 MG PER 1/2 TAB PO SCH (09:00)
[2023-02-22] MEDS: METOPROLOL TART 12.5 MG PER 1/2 TAB PO SCH ×2 (09:00→20:58)
[2023-02-22] MEDS ORDERED: ROPI2TAB46 PO (10:23)
[2023-02-22] MEDS ORDERED: PANT20TA6 PO (10:23)
[2023-02-22] MEDS ORDERED: HOME MED LIST COMPLETE! XX SCH (10:40)
[2023-02-22 11:19] LABS: ALBUMIN 1.8 G/DL (3.2-5.2); TOTAL PROTEIN 4.4 G/DL (5.7-8.2)
[2023-02-22 11:22] LABS: FREE T4 0.69 NG/DL (0.89-1.76); THYROID STIMULATING HORMONE 0.238 uIU/ML (0.55-4.78)
[2023-02-22] MEDS: dexAMETHasone 4 MG TAB PO SCH ×2 (11:42→20:54)
[2023-02-22] MEDS: FINASTERIDE 5MG TAB PO SCH (11:42)
[2023-02-22] MEDS ORDERED: FUROSEMIDE 20MG/2ML VIAL IV ONE (12:00)
[2023-02-22] MEDS: FERROUS SULFATE 325MG TAB PO SCH (12:26)
[2023-02-22] MEDS: ACETAMINOPHEN TAB 650MG DOSE (2X325MG) PO PRN (14:01)
[2023-02-22] MEDS: MECLIZINE 12.5 MG TAB PO SCH ×2 (17:12→20:57)
[2023-02-22 18:14] LABS: HEMATOCRIT 33.3 % (42.0-52.0)
[2023-02-22] MEDS: traZODone 100 MG TAB PO SCH (20:54)
[2023-02-22] MEDS: SENNA 8.6 MG TAB (SENOKOT) PO SCH (20:55)
[2023-02-22] MEDS: DOXAZOSIN MESYLATE 1 MG TAB PO SCH (20:56)
[2023-02-22] MEDS: rOPINIRole 1MG TAB PO SCH (20:58)
[2023-02-22] MEDS ORDERED: LOMOTIL 2.5MG/0.025MG TABLET PO SCH (21:00)
[2023-02-23 01:20] VITALS: BP 120/60
[2023-02-23 04:50] VITALS: BP 100/56; TEMP 98.6; O2SAT 97
[2023-02-23] MEDS: ACETAMINOPHEN TAB 650MG DOSE (2X325MG) PO PRN (05:05)
[2023-02-23 05:14] LABS: BASO % 0.1 % (0.0-1.0); HEMATOCRIT 28.7 % (42.0-52.0); HEMOGLOBIN 9.6 g/dl (13.5-17.5); LYMPH # 0.4 10^3/uL (1.5-5.0); LYMPH % 4.5 % (24.0-44.0); MEAN CORPUSCULAR HEMOGLOBIN 27.8 pg (27.0-33.0); MEAN CORPUSCULAR HGB CONC 33.4 g/dl (32.0-36.5); MEAN CORPUSCULAR VOLUME 83.2 fl (80.0-96.0); MONO # 0.5 10^3/uL (0.0-0.8); MONO % 5.7 % (2.0-8.0); NEUTROPHILS # 8.3 10^3/uL (1.5-8.5); NEUTROPHILS % 86.6 % (36.0-66.0); PLATELET COUNT, AUTOMATED 207 10^3/uL (150-450); RED BLOOD COUNT 3.45 10^6/uL (4.30-6.10); WHITE BLOOD COUNT 9.5 10^3/uL (4.0-10.0)
[2023-02-23 05:39] LABS: BLOOD UREA NITROGEN 18 MG/DL (9-23); CALCIUM LEVEL 6.8 MG/DL (8.3-10.6); CARBON DIOXIDE LEVEL 25 MMOL/L (20-31); CHLORIDE LEVEL 101 MMOL/L (98-107); CREATININE FOR GFR 0.48 MG/DL (0.70-1.30); GLOMERULAR FILTRATION RATE > 60.0 (>42); GLUCOSE, FASTING 118 MG/DL (74-106); MAGNESIUM LEVEL 1.9 MG/DL (1.8-2.4); POTASSIUM SERUM 4.2 MMOL/L (3.5-5.1); SODIUM LEVEL 132 MMOL/L (136-145)
[2023-02-23 07:23] VITALS: BP 97/53; TEMP 98.9; O2SAT 97
[2023-02-23] MEDS: dexAMETHasone 4 MG TAB PO SCH ×2 (08:40→21:31)
[2023-02-23] MEDS: FINASTERIDE 5MG TAB PO SCH (08:40)
[2023-02-23] MEDS: rOPINIRole 1MG TAB PO SCH ×2 (08:40→21:31)
[2023-02-23] MEDS: FERROUS SULFATE 325MG TAB PO SCH (08:40)
[2023-02-23] MEDS: MECLIZINE 12.5 MG TAB PO SCH ×3 (08:40→21:32)
[2023-02-23] MEDS: DOXAZOSIN MESYLATE 1 MG TAB PO SCH ×2 (08:44→21:32)
[2023-02-23] MEDS ORDERED: PANTOPRAZOLE 40MG VIAL IV SCH (09:00)
[2023-02-23] MEDS ORDERED: MOM 30ML SUSPENSION UDC PO PRN (10:20)
[2023-02-23] MEDS: DOCUSATE SODIUM 100MG CAPSULE PO PRN (10:40)
[2023-02-23 12:00] VITALS: BP 114/56; TEMP 97.9; O2SAT 99
[2023-02-23 13:12] LABS: ALBUMIN 1.8 G/DL (3.2-5.2); ALKALINE PHOSPHATASE 127 U/L (46-116); ALT/SGPT 44 U/L (7.0-40); AST/SGOT 42 U/L (<34); BILIRUBIN,DIRECT 0.3 MG/DL (<0.4); BILIRUBIN,TOTAL 0.8 MG/DL (0.3-1.2); TOTAL PROTEIN 4.5 G/DL (5.7-8.2)
[2023-02-23] MEDS ORDERED: LORazepam 1 MG TAB PO PRN (17:50)
[2023-02-23] MEDS ORDERED: SCOPOLAMINE 1MG TRANSDERMAL PATCH TOP PRN (17:50)
[2023-02-23] MEDS: SENNA 8.6 MG TAB (SENOKOT) PO SCH (21:31)
[2023-02-23] MEDS: traZODone 100 MG TAB PO SCH (21:32)
[2023-02-24] MEDS: FINASTERIDE 5MG TAB PO SCH (09:26)
[2023-02-24] MEDS: PANTOPRAZOLE 40MG TAB (PROTONIX) PO SCH (09:26)
[2023-02-24] MEDS: MECLIZINE 12.5 MG TAB PO SCH ×3 (09:26→20:47)
[2023-02-24] MEDS: rOPINIRole 1MG TAB PO SCH ×2 (09:26→20:43)
[2023-02-24] MEDS: dexAMETHasone 4 MG TAB PO SCH ×2 (09:27→20:49)
[2023-02-24] MEDS: DOXAZOSIN MESYLATE 1 MG TAB PO SCH ×2 (09:27→20:47)
[2023-02-24] MEDS: FERROUS SULFATE 325MG TAB PO SCH (09:28)
[2023-02-24] MEDS ORDERED: BISACODYL 10MG SUPP PR ONE (13:05)
[2023-02-24] MEDS: traZODone 100 MG TAB PO SCH (20:44)
[2023-02-24 20:47] VITALS: BP 113/70
[2023-02-24] MEDS: SENNA 8.6 MG TAB (SENOKOT) PO SCH (20:48)
[2023-02-25] MEDS: dexAMETHasone 4 MG TAB PO SCH ×2 (08:47→20:35)
[2023-02-25] MEDS: PANTOPRAZOLE 40MG TAB (PROTONIX) PO SCH (08:47)
[2023-02-25] MEDS: FINASTERIDE 5MG TAB PO SCH (08:47)
[2023-02-25] MEDS: rOPINIRole 1MG TAB PO SCH ×2 (08:47→20:35)
[2023-02-25] MEDS: FERROUS SULFATE 325MG TAB PO SCH (08:47)
[2023-02-25] MEDS: MECLIZINE 12.5 MG TAB PO SCH ×3 (08:47→20:35)
[2023-02-25] MEDS: DOCUSATE SODIUM 100MG CAPSULE PO PRN (08:52)
[2023-02-25] MEDS: ACETAMINOPHEN TAB 650MG DOSE (2X325MG) PO PRN (13:31)
[2023-02-25] MEDS ORDERED: SODIUM CHLORIDE NASAL 0.65% SPRAY BTL (OCEAN) PRN (16:30)
[2023-02-25] MEDS: SENNA 8.6 MG TAB (SENOKOT) PO SCH (20:35)
[2023-02-25] MEDS: traZODone 100 MG TAB PO SCH (20:35)
[2023-02-26] MEDS: FINASTERIDE 5MG TAB PO SCH (08:21)
[2023-02-26] MEDS: PANTOPRAZOLE 40MG TAB (PROTONIX) PO SCH (08:21)
[2023-02-26] MEDS: rOPINIRole 1MG TAB PO SCH ×2 (08:21→20:48)
[2023-02-26] MEDS: ACETAMINOPHEN TAB 650MG DOSE (2X325MG) PO PRN ×2 (08:21→14:22)
[2023-02-26] MEDS: MECLIZINE 12.5 MG TAB PO SCH ×3 (08:21→20:50)
[2023-02-26] MEDS: FERROUS SULFATE 325MG TAB PO SCH (08:21)
[2023-02-26] MEDS: dexAMETHasone 4 MG TAB PO SCH ×2 (08:21→20:49)
[2023-02-26] MEDS: DOCUSATE SODIUM 100MG CAPSULE PO PRN (16:07)
[2023-02-26] MEDS: traZODone 100 MG TAB PO SCH (20:48)
[2023-02-26] MEDS: SENNA 8.6 MG TAB (SENOKOT) PO SCH (20:50)
[2023-02-26] MEDS ORDERED: ONDANSETRON 4MG ORAL DISINTEGRATING TAB PO PRN (21:30)
[2023-02-26] MEDS ORDERED: RAMELTEON 8 MG TAB (ROZEREM) PO PRN (22:25)
[2023-02-27] MEDS: ACETAMINOPHEN TAB 650MG DOSE (2X325MG) PO PRN (10:12)
[2023-02-27] MEDS: dexAMETHasone 4 MG TAB PO SCH ×2 (10:12→20:53)
[2023-02-27] MEDS: FERROUS SULFATE 325MG TAB PO SCH (10:12)
[2023-02-27] MEDS: MECLIZINE 12.5 MG TAB PO SCH ×3 (10:12→20:53)
[2023-02-27] MEDS: PANTOPRAZOLE 40MG TAB (PROTONIX) PO SCH (10:12)
[2023-02-27] MEDS: FINASTERIDE 5MG TAB PO SCH (10:12)
[2023-02-27] MEDS: rOPINIRole 1MG TAB PO SCH ×2 (10:12→20:53)
[2023-02-27] MEDS: MORPHINE 10MG/0.5ML ORAL CONCENTRATE SOLUTION U/D SL PRN ×2 (12:29→14:38)
[2023-02-27] MEDS ORDERED: CALCIUM CARBONATE 500 MG CHEW U/D PO PRN (12:35)
[2023-02-27] MEDS ORDERED: CYCLOBENZAPRINE 5MG TABLET PO ONE (15:00)
[2023-02-27] MEDS: SENNA 8.6 MG TAB (SENOKOT) PO SCH (20:41)
[2023-02-27] MEDS: traZODone 100 MG TAB PO SCH (20:53)
[2023-02-28] MEDS: FINASTERIDE 5MG TAB PO SCH (08:55)
[2023-02-28] MEDS: FERROUS SULFATE 325MG TAB PO SCH (08:55)
[2023-02-28] MEDS: rOPINIRole 1MG TAB PO SCH ×2 (08:55→20:55)
[2023-02-28] MEDS: MECLIZINE 12.5 MG TAB PO SCH ×3 (08:55→20:56)
[2023-02-28] MEDS: PANTOPRAZOLE 40MG TAB (PROTONIX) PO SCH (08:55)
[2023-02-28] MEDS: dexAMETHasone 4 MG TAB PO SCH ×2 (08:55→20:56)
[2023-02-28] MEDS: ACETAMINOPHEN TAB 650MG DOSE (2X325MG) PO PRN ×2 (13:07→20:56)
[2023-02-28] MEDS: SENNA 8.6 MG TAB (SENOKOT) PO SCH (20:39)
[2023-02-28] MEDS: traZODone 100 MG TAB PO SCH (20:55)
[2023-03-01] MEDS: FERROUS SULFATE 325MG TAB PO SCH (08:09)
[2023-03-01] MEDS: rOPINIRole 1MG TAB PO SCH (08:09)
[2023-03-01] MEDS: MECLIZINE 12.5 MG TAB PO SCH ×2 (08:09→16:07)
[2023-03-01] MEDS: FINASTERIDE 5MG TAB PO SCH (08:09)
[2023-03-01] MEDS: PANTOPRAZOLE 40MG TAB (PROTONIX) PO SCH (08:09)
[2023-03-01] MEDS: ACETAMINOPHEN TAB 650MG DOSE (2X325MG) PO PRN (08:09)
[2023-03-01] MEDS: dexAMETHasone 4 MG TAB PO SCH (08:10)
[2023-03-01] MEDS: MORPHINE 10MG/0.5ML ORAL CONCENTRATE SOLUTION U/D SL PRN ×2 (09:38→13:00)
[2023-03-01] MEDS ORDERED: HYOS125TA PO (10:16)
[2023-03-01] MEDS ORDERED: ATIV1TAB10 PO (10:16)
[2023-03-01] MEDS ORDERED: MORP1SOL5 PO (10:16)
== END 2023-03-01 16:30 | disposition hospice, home (50) | DRG 375 ==
LOC: EDBD 04:29 → M ED 04:29 → M ED INP 10:12 → M PCU 14:10 → M MSPAV 02-24 16:52
PROVIDERS: ADMIT Internal Medicine; ATTEND Internal Medicine
PROC: 30233N1 Transfusion of Nonautologous Red Blood Cells into Peripheral Vein, Percutaneous Approach (ICD-10-PCS; principal; 2023-02-22)
DX: C18.9 Malignant neoplasm of colon, unspecified (principal); C79.31 Secondary malignant neoplasm of brain; C78.00 Secondary malignant neoplasm of unspecified lung; C78.7 Secondary malignant neoplasm of liver and intrahepatic bile duct; E87.1 Hypo-osmolality and hyponatremia; K92.2 Gastrointestinal hemorrhage, unspecified; C79.51 Secondary malignant neoplasm of bone; C78.6 Secondary malignant neoplasm of retroperitoneum and peritoneum; I48.0 Paroxysmal atrial fibrillation; I10 Essential (primary) hypertension; D50.0 Iron deficiency anemia secondary to blood loss (chronic); G25.81 Restless legs syndrome; K21.9 Gastro-esophageal reflux disease without esophagitis; N40.0 Benign prostatic hyperplasia without lower urinary tract symptoms; E88.09 Other disorders of plasma-protein metabolism, not elsewhere classified; R60.0 Localized edema; R07.89 Other chest pain; L89.302 Pressure ulcer of unspecified buttock, stage 2; K59.00 Constipation, unspecified; D63.0 Anemia in neoplastic disease; Z79.899 Other long term (current) drug therapy; Z92.3 Personal history of irradiation; R00.0 Tachycardia, unspecified; E03.9 Hypothyroidism, unspecified; Z66 Do not resuscitate